=== PATIENT | male | born 1945 ===

== ENCOUNTER 2021-10-22 03:10 | Emergency (ER) | payer MEDICARE ==
[2021-10-22] MEDS: HYDROmorphone 2 MG/ML SDV IM ONE (03:39)
[2021-10-22] MEDS: HYDROmorphone 2 MG/ML SDV IVPUSH ONE (04:20)
[2021-10-22] MEDS: Ketorolac 30 MG/ML SDV IVPUSH ONE (04:43)
[2021-10-22] MEDS ORDERED: Acetaminophen/HYDROcodone 325-5 MG Tab ONE (05:00)
[2021-10-22 05:44] VITALS: BP 128/72; PULSE 79
== END 2021-10-22 07:12 | disposition home or self-care (01) ==
LOC: LB.ED 03:10
DX: R10.9 Unspecified abdominal pain (principal); Z79.899 Other long term (current) drug therapy
CPT/HCPCS: 36415; 74176; 74177; 74178; 80053; 81001; 83690; 85025; 96372; 96374; 96375; 99284-25; A9270-GY; J1170; J1885

== ENCOUNTER 2021-10-22 12:00 | Emergency (ER) | payer MEDICARE | END 2021-10-22 13:05 | LOC: LB.ED 12:00 | DX: R10.9 Unspecified abdominal pain (principal) | CPT/HCPCS: 36415; 74176; 74177; 74178; 80053; 81001; 83690; 85025; 96372; 96374; 96375; 99283; 99284; 99284-25; A0425; A0429; A9270-GY; J1170; J1885 ==

== ENCOUNTER 2021-11-25 18:45 | Inpatient (IN) | payer MEDICARE ==
[2021-11-25] MEDS ORDERED: Sodium Chloride 0.9% 10 ML Syringe FLUSH PRN (19:54)
[2021-11-25] MEDS ORDERED: Ketorolac 30 MG/ML SDV IVPUSH ONE (20:18)
[2021-11-25] MEDS ORDERED: Iopamidol 612 MG/ML 100 ML Bottle IV PRN (20:27)
[2021-11-25] MEDS ORDERED: Sodium Chloride 0.9% 50 ML SDV FLUSH SCH (20:30)
[2021-11-25] MEDS ORDERED: LORazepam 2 MG/ML SDV IV PRN (22:30)
[2021-11-25] MEDS ORDERED: Ondansetron 4 MG/2 ML SDV IVPUSH PRN (22:52)
[2021-11-25] MEDS: Morphine 2 MG/ML SYRINGE IVPUSH PRN (22:57)
[2021-11-25] MEDS: Pantoprazole 40 MG in Sodium Chloride 0.9% 100 ML IV SCH (23:06)
[2021-11-25] MEDS ORDERED: Morphine 2 MG/ML SYRINGE ONE (23:07)
[2021-11-25] MEDS ORDERED: Pantoprazole 40 MG Vial ONE (23:12)
[2021-11-25] MEDS ORDERED: Sodium Chloride 0.9% 1,000 ML IV STA (23:41)
[2021-11-25] MEDS: Sodium Chloride 0.9% 1,000 ML IV SCH (23:42)
[2021-11-26] MEDS ORDERED: Diatrizoate Meglumine/Diatrizoate Sodium 37% 30 ML Bottle NGTUBE SCH (01:30)
[2021-11-26] MEDS: Morphine 2 MG/ML SYRINGE IVPUSH PRN ×3 (02:24→08:17)
[2021-11-26] MEDS: Sodium Chloride 0.9% 1,000 ML IV SCH ×2 (07:21→14:47)
[2021-11-26] MEDS: Pantoprazole 40 MG in Sodium Chloride 0.9% 100 ML IV SCH (08:03)
[2021-11-26] MEDS ORDERED: HYDROmorphone 2 MG/ML SDV ONE (09:05)
[2021-11-26] MEDS: HYDROmorphone 2 MG/ML SDV IVPUSH PRN ×2 (09:30→14:30)
== END 2021-11-26 16:27 | DRG 390 ==
LOC: LB.ED 18:45 → LB.MS 22:30 → UNDOADMIN 23:45 → LB.MS 23:45 → UNDODISIN 11-26 16:27
PROVIDERS: ADMIT Physician Assistant; ATTEND Physician Assistant
DX: K56.609 Unspecified intestinal obstruction, unspecified as to partial versus complete obstruction (principal); Z98.890 Other specified postprocedural states; K91.30 Postprocedural intestinal obstruction, unspecified as to partial versus complete; Z79.890 Hormone replacement therapy; Y83.8 Other surgical procedures as the cause of abnormal reaction of the patient, or of later complication, without mention of misadventure at the time of the procedure; Y82.8 Other medical devices associated with adverse incidents; J44.9 Chronic obstructive pulmonary disease, unspecified; Z20.822 Contact with and (suspected) exposure to COVID-19; Z90.49 Acquired absence of other specified parts of digestive tract
CPT/HCPCS: 36415; 71045; 74018; 74177; 80053; 81001; 83690; 84484; 85025; 87086; 93005; C9113; J1885; J2270; J3490 ×2; J7030; Q9967; U0002; 43752; 80048; 83735; 85027; 87088; 87186; 96374; 99285-25; A0425; A0429; J1170

== ENCOUNTER 2022-08-31 17:01 | Emergency (ER) | payer MEDICARE ==
[2022-08-31] MEDS ORDERED: Albuterol 0.083% 2.5 MG/3 ML Neb Soln NEB ONE (17:26)
[2022-08-31] MEDS ORDERED: Albuterol/Ipratropium 3.0-0.5 MG/3 ML Neb Soln NEB STA (17:26)
[2022-08-31] MEDS ORDERED: Sodium Chloride 0.9% 10 ML Syringe FLUSH PRN (17:27)
[2022-08-31] MEDS ORDERED: Albuterol 0.083% 2.5 MG/3 ML Neb Soln ONE (17:37)
[2022-08-31] MEDS ORDERED: methylPREDNISolone Sodium Succinate 40 MG/1 ML SDV IVPUSH ONE (18:08)
[2022-08-31] MEDS ORDERED: methylPREDNISolone Sodium Succinate 40 MG/1 ML SDV ONE (18:29)
== END 2022-08-31 18:56 | disposition home or self-care (01) ==
LOC: LB.ED 17:01
DX: J44.1 Chronic obstructive pulmonary disease with (acute) exacerbation (principal); E03.9 Hypothyroidism, unspecified; Z79.899 Other long term (current) drug therapy
CPT/HCPCS: 36415; 71045; 80048; 85027; 94640; 96374; 99283; 99285-25; J2920; J7620

== ENCOUNTER 2022-09-01 16:10 | Inpatient (IN) | payer MEDICARE ==
[2022-09-01] MEDS ORDERED: Albuterol/Ipratropium 3.0-0.5 MG/3 ML Neb Soln NEB STA ×3 (16:31→18:21)
[2022-09-01] MEDS ORDERED: Sodium Chloride 0.9% 10 ML Syringe FLUSH PRN (16:33)
[2022-09-01] MEDS ORDERED: methylPREDNISolone Sodium Succinate 125 MG/2 ML SDV IVPUSH ONE (16:51)
[2022-09-01] MEDS: Albuterol 0.083% 2.5 MG/3 ML Neb Soln NEB SCH ×2 (16:54→18:55)
[2022-09-01] MEDS: Budesonide 0.5 MG/2 ML Neb Susp NEB SCH ×2 (17:00→20:43)
[2022-09-01] MEDS: methylPREDNISolone Sodium Succinate 40 MG/1 ML SDV IVPUSH SCH (17:05)
[2022-09-01] MEDS ORDERED: Albuterol 0.083% 2.5 MG/3 ML Neb Soln NEB ONE (17:39)
[2022-09-01] MEDS ORDERED: Acetylcysteine 20% 200 MG/ML 30 ML Nebulizer Soln SDV NEB ONE (17:48)
[2022-09-01] MEDS ORDERED: LORazepam 2 MG/ML SDV IVPUSH ONE (17:53)
[2022-09-01] MEDS ORDERED: Sodium Chloride 0.9% 1,000 ML IV SCH (18:30)
[2022-09-01] MEDS: Nicotine 21 MG/24 Hr Patch TRDERM SCH (19:03)
[2022-09-01] MEDS: Nicotine 21 MG/24 Hr Patch ONE (19:55)
[2022-09-02] MEDS: Nicotine 21 MG/24 Hr Patch ONE (00:11)
[2022-09-02] MEDS: Albuterol 0.083% 2.5 MG/3 ML Neb Soln NEB SCH ×6 (00:12→17:03)
[2022-09-02] MEDS: methylPREDNISolone Sodium Succinate 40 MG/1 ML SDV IVPUSH SCH (05:43)
[2022-09-02] MEDS: Budesonide 0.5 MG/2 ML Neb Susp NEB SCH ×2 (07:47→22:09)
[2022-09-02] MEDS: Nicotine 21 MG/24 Hr Patch TRDERM SCH (07:48)
[2022-09-02] MEDS ORDERED: Albuterol/Ipratropium 3.0-0.5 MG/3 ML Neb Soln NEB SCH (09:00)
[2022-09-02] MEDS ORDERED: Magnesium Sulfate/Water 2 GM in Premix Bag 1 BAG IV ONE (09:44)
[2022-09-02] MEDS ORDERED: Sodium Chloride 0.9% 1,000 ML IV SCH (09:45)
[2022-09-02] MEDS ORDERED: Levothyroxine 100 MCG Tab PO SCH (10:00)
[2022-09-02] MEDS ORDERED: Azithromycin 250 MG in Sodium Chloride 0.9% 250 ML IV SCH (10:00)
[2022-09-02] MEDS: Albuterol/Ipratropium 3.0-0.5 MG/3 ML Neb Soln NEB SCH ×6 (10:11→22:10)
[2022-09-02] MEDS ORDERED: Magnesium Sulfate/Water 50 ML ONE (11:00)
[2022-09-02] MEDS ORDERED: methylPREDNISolone Sodium Succinate 40 MG/1 ML SDV IVPUSH SCH (14:00)
[2022-09-02] MEDS ORDERED: Levofloxacin/Dextrose 5%-Water 500 MG in Levofloxacin/Dextrose 5%-Water 100 ML IV SCH (16:00)
[2022-09-02] MEDS ORDERED: Albuterol 0.083% 2.5 MG/3 ML Neb Soln NEB ONE ×2 (18:09→19:04)
[2022-09-02] MEDS ORDERED: Albuterol/Ipratropium 3.0-0.5 MG/3 ML Neb Soln NEB ONE (18:29)
[2022-09-02] MEDS ORDERED: Albuterol/Ipratropium 3.0-0.5 MG/3 ML Neb Soln ONE (18:33)
[2022-09-02] MEDS ORDERED: Racepinephrine 2.25% 0.5 ML Neb Soln NEB ONE (18:34)
[2022-09-02] MEDS ORDERED: Sodium Chloride 0.9% Inhalation Soln 3 ML Neb INH ONE (18:34)
[2022-09-02] MEDS ORDERED: Albuterol 0.083% 2.5 MG/3 ML Neb Soln ONE (18:46)
[2022-09-02] MEDS: methylPREDNISolone Sodium Succinate 125 MG/2 ML SDV IVPUSH SCH ×2 (18:51→22:10)
[2022-09-02] MEDS ORDERED: LORazepam 2 MG/ML SDV ONE (19:13)
[2022-09-02] MEDS ORDERED: LORazepam 2 MG/ML SDV IVPUSH ONE (19:15)
[2022-09-02] MEDS ORDERED: rOPINIRole 1 MG Tab PO SCH (20:00)
[2022-09-02] MEDS ORDERED: Ketamine 200 MG/20 ML MDV IVPUSH ONE ×8 (20:30→21:48)
[2022-09-02] MEDS ORDERED: Propofol 200 MG/20 ML SDV IVPUSH ONE ×3 (20:46→20:52)
[2022-09-02] MEDS ORDERED: propofoL 100 ML IV SCH (21:00)
[2022-09-02] MEDS ORDERED: Ketamine 200 MG/20 ML MDV IM ONE (21:03)
[2022-09-02] MEDS ORDERED: Midazolam 1 MG/ML 2 ML SDV IVPUSH ONE ×2 (21:05→21:09)
[2022-09-02] MEDS ORDERED: Norepinephrine 4 MG in Dextrose 5% in Water 246 ML IV SCH ×2 (21:15)
[2022-09-02] MEDS ORDERED: Sodium Chloride 0.9% 1,000 ML IV ONE ×2 (21:54→21:55)
== END 2022-09-02 22:18 | DRG 192 ==
LOC: LB.ED 16:10 → LB.MS 16:47 → UNDOADMIN 20:00 → LB.MS 20:00 → UNDODISIN 09-02 22:18
PROVIDERS: ADMIT Surgery; ATTEND Surgery
PROC: 5A09357 Assistance with Respiratory Ventilation, Less than 24 Consecutive Hours, Continuous Positive Airway Pressure (ICD-10-PCS; principal; 2022-09-01)
DX: J44.1 Chronic obstructive pulmonary disease with (acute) exacerbation (principal); F17.210 Nicotine dependence, cigarettes, uncomplicated; Z99.81 Dependence on supplemental oxygen; F17.218 Nicotine dependence, cigarettes, with other nicotine-induced disorders; R09.02 Hypoxemia; Z20.822 Contact with and (suspected) exposure to COVID-19; E03.9 Hypothyroidism, unspecified; Z79.2 Long term (current) use of antibiotics; Z79.52 Long term (current) use of systemic steroids; Z79.899 Other long term (current) drug therapy; Z90.49 Acquired absence of other specified parts of digestive tract
CPT/HCPCS: 36415; 36600; 51702; 71045; 80048; 82803; 83605; 83735; 84100; 84484; 85025; 85027; 93005; 94640; 99223; 99238; A9270-GY; J0456; J1956; J2060; J2250; J2704; J2920; J2930; J3475; J3490; J7030; J7050; J7060; J7620; U0002

== ENCOUNTER 2022-09-12 14:20 | Inpatient (IN) | payer MEDICARE ==
[2022-09-12] MEDS ORDERED: Acetaminophen 325 MG Tab PO PRN (15:43)
[2022-09-12] MEDS ORDERED: Polyvinyl Alcohol 1.4% Ophth Soln 15 ML Bottle EYEBOTH PRN (15:56)
[2022-09-12] MEDS ORDERED: Nicotine 14 MG/24 Hr Patch TRDERM SCH (16:00)
[2022-09-12] MEDS: Albuterol/Ipratropium 3.0-0.5 MG/3 ML Neb Soln INH SCH ×2 (17:04→20:18)
[2022-09-12] MEDS ORDERED: Tuberculin, PPD 5 Units/0.1 ML 1 ML MDV IDERM ONE (17:11)
[2022-09-12] MEDS: Heparin Sodium 5,000 Units/ML Vial SUBCUT SCH (20:18)
[2022-09-12] MEDS: Budesonide 0.5 MG/2 ML Neb Susp INH SCH (20:21)
[2022-09-12] MEDS: QUEtiapine 25 MG Tab PO SCH (20:22)
[2022-09-12] MEDS: predniSONE 10 MG Tab PO SCH (20:23)
[2022-09-13] MEDS: Albuterol/Ipratropium 3.0-0.5 MG/3 ML Neb Soln INH SCH ×7 (00:14→23:39)
[2022-09-13] MEDS: Heparin Sodium 5,000 Units/ML Vial SUBCUT SCH ×3 (04:50→20:37)
[2022-09-13] MEDS: Levothyroxine 100 MCG Tab PO SCH (08:28)
[2022-09-13] MEDS: Tamsulosin 0.4 MG Cap.ER PO SCH (08:28)
[2022-09-13] MEDS: Nicotine 21 MG/24 Hr Patch TRDERM SCH (08:28)
[2022-09-13] MEDS: predniSONE 10 MG Tab PO SCH ×2 (08:29→20:37)
[2022-09-13] MEDS: Pantoprazole 40 MG Tab.CR PO SCH (08:29)
[2022-09-13] MEDS: amLODIPine 10 MG Tab PO SCH (08:29)
[2022-09-13] MEDS: Budesonide 0.5 MG/2 ML Neb Susp INH SCH ×2 (09:00→20:36)
[2022-09-13] MEDS: guaiFENesin 600 MG Tab.ER PO SCH ×2 (13:22→20:37)
[2022-09-13] MEDS: QUEtiapine 25 MG Tab PO SCH (20:42)
[2022-09-14] MEDS: Albuterol/Ipratropium 3.0-0.5 MG/3 ML Neb Soln INH SCH ×5 (04:07→19:47)
[2022-09-14] MEDS: Heparin Sodium 5,000 Units/ML Vial SUBCUT SCH ×3 (04:08→19:48)
[2022-09-14] MEDS: guaiFENesin 600 MG Tab.ER PO SCH ×3 (07:44→19:47)
[2022-09-14] MEDS: Levothyroxine 100 MCG Tab PO SCH (07:44)
[2022-09-14] MEDS: Tamsulosin 0.4 MG Cap.ER PO SCH (07:44)
[2022-09-14] MEDS: amLODIPine 10 MG Tab PO SCH (07:45)
[2022-09-14] MEDS: Pantoprazole 40 MG Tab.CR PO SCH (07:45)
[2022-09-14] MEDS: predniSONE 10 MG Tab PO SCH ×2 (07:45→19:47)
[2022-09-14] MEDS: Budesonide 0.5 MG/2 ML Neb Susp INH SCH ×2 (07:45→19:47)
[2022-09-14] MEDS: Nicotine 21 MG/24 Hr Patch TRDERM SCH (07:46)
[2022-09-14] MEDS: QUEtiapine 25 MG Tab PO SCH (19:47)
[2022-09-15] MEDS: Albuterol/Ipratropium 3.0-0.5 MG/3 ML Neb Soln INH SCH ×6 (00:01→20:25)
[2022-09-15] MEDS: Heparin Sodium 5,000 Units/ML Vial SUBCUT SCH ×3 (04:48→20:25)
[2022-09-15] MEDS: Levothyroxine 100 MCG Tab PO SCH (06:59)
[2022-09-15] MEDS: Pantoprazole 40 MG Tab.CR PO SCH (07:07)
[2022-09-15] MEDS: amLODIPine 10 MG Tab PO SCH (07:07)
[2022-09-15] MEDS: predniSONE 10 MG Tab PO SCH ×2 (07:11→20:26)
[2022-09-15] MEDS: Nicotine 21 MG/24 Hr Patch TRDERM SCH (07:11)
[2022-09-15] MEDS: guaiFENesin 600 MG Tab.ER PO SCH ×3 (07:11→20:26)
[2022-09-15] MEDS: Tamsulosin 0.4 MG Cap.ER PO SCH (07:11)
[2022-09-15] MEDS: Budesonide 0.5 MG/2 ML Neb Susp INH SCH ×2 (07:12→20:25)
[2022-09-15] MEDS: QUEtiapine 25 MG Tab PO SCH (20:26)
[2022-09-16] MEDS: Albuterol/Ipratropium 3.0-0.5 MG/3 ML Neb Soln INH SCH ×7 (00:20→23:00)
[2022-09-16] MEDS: Heparin Sodium 5,000 Units/ML Vial SUBCUT SCH ×3 (04:48→20:13)
[2022-09-16] MEDS: Nicotine 21 MG/24 Hr Patch TRDERM SCH (08:34)
[2022-09-16] MEDS: Tamsulosin 0.4 MG Cap.ER PO SCH (08:35)
[2022-09-16] MEDS: amLODIPine 10 MG Tab PO SCH (08:35)
[2022-09-16] MEDS: Levothyroxine 100 MCG Tab PO SCH (08:35)
[2022-09-16] MEDS: Pantoprazole 40 MG Tab.CR PO SCH (08:37)
[2022-09-16] MEDS: Budesonide 0.5 MG/2 ML Neb Susp INH SCH ×2 (08:37→20:13)
[2022-09-16] MEDS: guaiFENesin 600 MG Tab.ER PO SCH ×3 (08:37→20:13)
[2022-09-16] MEDS: QUEtiapine 25 MG Tab PO SCH (20:14)
[2022-09-17] MEDS: Heparin Sodium 5,000 Units/ML Vial SUBCUT SCH ×3 (05:09→19:43)
[2022-09-17] MEDS: Albuterol/Ipratropium 3.0-0.5 MG/3 ML Neb Soln INH SCH ×6 (05:09→23:54)
[2022-09-17] MEDS: Levothyroxine 100 MCG Tab PO SCH (06:26)
[2022-09-17] MEDS: Pantoprazole 40 MG Tab.CR PO SCH (07:46)
[2022-09-17] MEDS: guaiFENesin 600 MG Tab.ER PO SCH ×3 (07:46→19:43)
[2022-09-17] MEDS: amLODIPine 10 MG Tab PO SCH (07:46)
[2022-09-17] MEDS: Tamsulosin 0.4 MG Cap.ER PO SCH (07:46)
[2022-09-17] MEDS: Nicotine 21 MG/24 Hr Patch TRDERM SCH (07:50)
[2022-09-17] MEDS: Budesonide 0.5 MG/2 ML Neb Susp INH SCH ×2 (08:45→19:43)
[2022-09-17] MEDS ORDERED: Warfarin 2 MG Tab PO SCH (18:00)
[2022-09-17] MEDS: QUEtiapine 25 MG Tab PO SCH (19:43)
[2022-09-18] MEDS: Albuterol/Ipratropium 3.0-0.5 MG/3 ML Neb Soln INH SCH ×2 (03:49→07:49)
[2022-09-18] MEDS: Heparin Sodium 5,000 Units/ML Vial SUBCUT SCH (03:49)
[2022-09-18] MEDS: Levothyroxine 100 MCG Tab PO SCH (06:17)
[2022-09-18] MEDS: Budesonide 0.5 MG/2 ML Neb Susp INH SCH (07:49)
[2022-09-18] MEDS: Tamsulosin 0.4 MG Cap.ER PO SCH (07:51)
[2022-09-18] MEDS: Pantoprazole 40 MG Tab.CR PO SCH (07:51)
[2022-09-18] MEDS: amLODIPine 10 MG Tab PO SCH (07:51)
[2022-09-18] MEDS: Nicotine 21 MG/24 Hr Patch TRDERM SCH (07:51)
[2022-09-18] MEDS: guaiFENesin 600 MG Tab.ER PO SCH (07:51)
== END 2022-09-18 09:55 | disposition home or self-care (01) | DRG 192 ==
LOC: LB.MS 15:46
PROVIDERS: ADMIT Surgery; ATTEND Surgery
DX: J44.9 Chronic obstructive pulmonary disease, unspecified (principal); E03.9 Hypothyroidism, unspecified; F17.218 Nicotine dependence, cigarettes, with other nicotine-induced disorders; R33.9 Retention of urine, unspecified; I10 Essential (primary) hypertension; G47.00 Insomnia, unspecified; F41.9 Anxiety disorder, unspecified; R53.81 Other malaise; Z79.890 Hormone replacement therapy; Z79.899 Other long term (current) drug therapy; Z99.81 Dependence on supplemental oxygen
CPT/HCPCS: 51702; 51798; 81003; 86580; 94640; 97110-GO; 97110-GP; 97116-GP; 97162-GP; 97165-GO; 97530-GO; 97530-GP; 99305; 99309; 99315; A9270-GY; J1644; J7512; J7620; U0002

== ENCOUNTER 2022-09-22 16:35 | Emergency (ER) | payer MEDICARE ==
[2022-09-22] MEDS ORDERED: LORazepam 0.5 MG Tab ONE ×2 (18:00→18:10)
== END 2022-09-22 18:03 | disposition home or self-care (01) ==
LOC: LB.ED 16:35
DX: J44.9 Chronic obstructive pulmonary disease, unspecified (principal); E03.9 Hypothyroidism, unspecified; Z79.899 Other long term (current) drug therapy; Z87.891 Personal history of nicotine dependence
CPT/HCPCS: 36415; 71045; 80053; 82803; 83880; 85025; 99285; A9270